=== PATIENT | female | born 1955 | race Asian ===

== ENCOUNTER → 2018-03-28 12:49 | Outpatient (CLI) | payer BC, SELFPAY ==
--- NOTE | 2018-03-28 | DI.MG.S_ITS ---
UNILATERAL RIGHT DIGITAL DIAGNOSTIC MAMMOGRAM 3D/2D WITH ADDITIONAL VIEWS: 03/28/2018 CLINICAL: Additional evaluation requested from prior study. Comparison is made to exams dated: 02/26/2018 mammogram, 11/01/2016 mammogram, and 09/28/2015 mammogram - [facility]. The tissue of the right breast is extremely dense, which lowers the sensitivity of mammography. Prior mammographic finding is no longer seen in the right breast. No significant masses, calcifications, or other findings are seen in the breast. IMPRESSION: NEGATIVE There is no mammographic evidence of malignancy. A 1 year screening mammogram is recommended. This exam was interpreted at Station ID: [id number]. NOTE: For mammograms, a report in lay terms will be sent to the patient. Approximately 15% of breast malignancies will not be visualized mammographically. In the management of a palpable breast mass, a negative mammogram must not discourage biopsy of a clinically suspicious lesion. Electronically Signed By: Koko meadows/stacey:03/28/2018 17:35:12 letter sent: Normal Exam ACR BI-RADS Category 1: Negative [id number]
== END ==
PROVIDERS: Family Provider Nurse Practitioner Family; PCP Nurse Practitioner Family; Visit Provider Nurse Practitioner Family
DX: R92.8 Other abnormal and inconclusive findings on diagnostic imaging of breast (principal)
CPT/HCPCS: 77065; G0279